=== PATIENT | female | born 1955 | race Caucasian/White ===

== ENCOUNTER 2018-06-22 15:53 | Emergency (ER) | payer BC, MEDICARE ==
--- NOTE | 2018-06-22 18:05 | RAD ---
THREE VIEW LEFT ANKLE: Clinical history: Pain, stepping injury. FINDINGS: There is an essentially nondisplaced fibular tip fracture with overlying lateral left ankle swelling. Mortise is maintained. IMPRESSION: Minimally displaced fibular tip fracture with associated soft tissue edema of the lateral left ankle. POS: [facility]
== END 2018-06-22 17:12 | disposition home or self-care (01) ==
LOC: ERS 15:53
DX: S82.402A Unspecified fracture of shaft of left fibula, initial encounter for closed fracture (principal); F32.9 Major depressive disorder, single episode, unspecified; I49.9 Cardiac arrhythmia, unspecified; Z79.899 Other long term (current) drug therapy; Z79.82 Long term (current) use of aspirin; X50.9XXA Other and unspecified overexertion or strenuous movements or postures, initial encounter